=== PATIENT | male | born 1960 | race Caucasian/White ===

== ENCOUNTER 2023-10-12 12:19 | Outpatient (CLI) | payer OTHER, SELFPAY ==
--- NOTE | ~2023-10-12 | PE_ITS ---
EXAMINATION: PET_PETPSMAST_PT DATE: 10/12/2023 14:58 INDICATION: Prostate cancer TECHNIQUE: 5.392 mCi of Locametz Ga-[id number]) was administered i.v. Low dose computed nj ography (CT) images were acquired from the base of the brain to the base of the brain to the proximal thighs for attenuation correction and anatomic localization. Positron emission tomography (PET) imag es were acquired in the same distribution beginning 93 minutes after injection. Images including fuse d PET/CT images were reconstructed in axial, coronal, and sagittal planes. Automated exposure control technique was employed. The dose-length product was 1299.42mGy-cm. COMPARISON: None FINDINGS: Head/neck: Typical pattern of symmetric physiologic increased activity in the lacrimal, parotid and submandibula r glands as well as along the mucosa of the nasal and oral cavities, pharynx and hypopharynx. No path ologically enlarged cervical lymphadenopathy or suspicious foci of increased uptake in the visualized head or neck. Chest: Lungs are clear with no pulmonary nodules, pneumonia, pulmonary edema or pleural effusion. Heart size is normal. Atherosclerotic coronary artery calcific lesion. No pericardial effusion. Thoracic aorta is normal in caliber. No pathologically enlarged or PSMA avid thoracic lymphadenopathy. Abdomen/pelvis/proximal thighs: Physiologic renal accumulation and excretion of activity in the kidneys, bladder and along portions o f ureters. There is diffuse smooth bladder wall thickening to at least in part to incomplete distenti on but could also be due to chronic outlet obstruction from the enlarged prostate which measures 4.5 x 3.6 cm. Small region of mild uptake posteriorly on the left and right sides of the prostate with ma ximal SUVs measuring 4.5 on the left and 4.2 on the right. Normal degree and slightly heterogenous pa ttern of increased uptake throughout the liver and spleen without radiologic correlate or dominant PS MA avid lesion. The gallbladder, pancreas and bilateral adrenal glands are normal. Moderate uptake sc attered throughout the bowels with typical duodenal and proximal jejunal predominance and without rad iologic correlate, also likely physiologic. Normal appendix. No other abnormal foci of increased upta ke or pathologically enlarged lymphadenopathy in the abdomen, pelvis or proximal thighs. Musculoskeletal: Severe lower cervical spondylosis and moderate thoracic and lumbar spondylosis. No suspicious lytic, blastic or PSMA avid bone lesions. IMPRESSION: 1. Mild uptake in the left and right peripheral zones of the enlarged prostate with reported prostate cancer. No evident metastatic disease. Reviewed, dictated and finalized at location A.
== END 2023-10-12 12:20 | disposition home or self-care (01) ==
PROVIDERS: Visit Provider Urology
DX: C61 Malignant neoplasm of prostate (principal); N40.0 Benign prostatic hyperplasia without lower urinary tract symptoms
CPT/HCPCS: 78815; A9596